=== PATIENT | male | born 1985 ===

== ENCOUNTER → 2017-07-31 | Outpatient (REF) | payer OTHER | LOC: M LAB REF 12:35 | DX: J02.9 Acute pharyngitis, unspecified (principal) ==

== ENCOUNTER → 2019-03-29 | Outpatient (CLI) | payer OTHER ==
--- NOTE | 2019-03-29 17:57 | REP ---
Right foot four views : There is no fracture or dislocation. Mineralization and joint spaces are normal. There are no calcifications or foreign bodies. Impression: Negative right foot . Electronically Signed by Isidro Mcdaniel MD 03/29/2019 05:49 P
== END ==
LOC: M WUC 17:22
PROVIDERS: ATTEND Physician Assistant
DX: M79.671 Pain in right foot (principal)

== ENCOUNTER 2020-02-04 13:30 | Emergency (ER) | payer OTHER ==
[~2020-02-04 13:30] MED LIST: IBUPROFEN 800 MG TAB As Ordered ONE; IBUPROFEN 800 MG TAB ONE
--- NOTE | 2020-03-15 16:34 | ECGEPIP ---
SINUS RHYTHM WITH SINUS ARRHYTHMIA NORMAL ECG SEE SCANNED DOWNTIME REPORT MTDD
[2020-03-19 16:49] LABS: BASO # 0.1 10^3/uL (0.0-0.2); BASO % 0.4 % (0.0-1.0); EOS # 1.2 10^3/uL (0.0-0.5); EOS % 9.9 % (0.0-3.0); HEMATOCRIT 49.1 % (42.0-52.0); HEMOGLOBIN 16.4 g/dl (13.5-17.5); LYMPH % 17.3 % (24.0-44.0); MEAN CORPUSCULAR HEMOGLOBIN 30.5 pg (27.0-33.0); MEAN CORPUSCULAR HGB CONC 33.4 g/dl (32.0-36.5); MEAN CORPUSCULAR VOLUME 91.4 fl (80.0-96.0); MONO # 0.8 10^3/uL (0.0-0.8); MONO % 6.7 % (0.0-5.0); NEUTROPHILS # 7.7 10^3/uL (1.5-8.5); NEUTROPHILS % 65.4 % (36.0-66.0); PLATELET COUNT, AUTOMATED 299 10^3/uL (150-450); RED BLOOD COUNT 5.37 10^6/uL (4.30-6.10); WHITE BLOOD COUNT 11.7 10^3/uL (4.0-10.0)
--- NOTE | 2020-03-24 10:25 | REP ---
CHEST X-RAY: 2-VIEWS HISTORY: Chest pain. COMPARISON: None. FINDINGS: EKG monitoring electrodes overlie the chest. There is a granulomatous calcification adjacent to the monitor wire on the left in the upper lobe. The lung morales are otherwise clear. The pleural angles are sharp. The heart is not enlarged. Pulmonary vasculature is not increased. No bony abnormality is seen. There is no evidence of opaque foreign body. IMPRESSION: Negative chest x-ray. MTDD
[2020-04-24 12:39] LABS: ALBUMIN 4.5 GM/DL (3.2-5.2); ALT/SGPT 71 U/L (12-78); BILIRUBIN,DIRECT 0.4 MG/DL (0.0-0.2); BILIRUBIN,TOTAL 1.6 MG/DL (0.2-1.0); BLOOD UREA NITROGEN 14 MG/DL (7-18); CALCIUM LEVEL 9.5 MG/DL (8.5-10.1); CARBON DIOXIDE LEVEL 29 MEQ/L (21-32); CHLORIDE LEVEL 106 MEQ/L (98-107); CK-MB VALUE MASS 1.3 NG/ML (<3.6); CPK CREATINE PHOSPHOKINASE 53 U/L (39-308); CREATININE FOR GFR 0.89 MG/DL (0.70-1.30); GLOMERULAR FILTRATION RATE > 60.0 (>60); GLUCOSE, FASTING 85 MG/DL (70-100); MB/CK RELATIVE INDEX 2.45 (< OR =4); POTASSIUM SERUM 4.6 MEQ/L (3.5-5.1); SODIUM LEVEL 140 MEQ/L (136-145); TOTAL PROTEIN 7.5 GM/DL (6.4-8.2)
== END 2020-02-04 15:48 | disposition home or self-care (01) ==
LOC: M ED 13:30
DX: R07.89 Other chest pain (principal); J45.909 Unspecified asthma, uncomplicated; K76.0 Fatty (change of) liver, not elsewhere classified; Z79.899 Other long term (current) drug therapy

== ENCOUNTER → 2022-03-25 | Outpatient (REF) | payer OTHER ==
[2022-03-25 17:34] LABS: HEPATITIS B CORE ANTIBODY IGM NEGATIVE (NEGATIVE); HEPATITIS B SURFACE ANTIGEN NEGATIVE (NEGATIVE); HEPATITIS C VIRUS ABY INDEX < 0.0 INDEX (<0.8)
== END ==
LOC: M LAB REF 16:11
PROVIDERS: ATTEND Registered Nurse
DX: K76.0 Fatty (change of) liver, not elsewhere classified (principal); R94.5 Abnormal results of liver function studies

== ENCOUNTER 2022-04-24 12:55 | Emergency (ER) | payer OTHER ==
[~2022-04-24] VITALS: Ht 177.8 cm; Wt 125.5 kg
[2022-04-24 12:58] VITALS: BP 160/110
[2022-04-24] MEDS ORDERED: CETI-24 PO (13:10)
[2022-04-24] MEDS ORDERED: ALBU8.5H (13:10)
[2022-04-24] MEDS ORDERED: FLUT1BLS4 (13:10)
== END 2022-04-24 17:08 | disposition left against medical advice (07) ==
LOC: M ED 12:55
DX: Z53.21 Procedure and treatment not carried out due to patient leaving prior to being seen by health care provider (principal)